=== PATIENT | female | born 1950 | race Caucasian/White ===

== ENCOUNTER 2017-03-06 01:23 | Inpatient (IN) | payer OTHER ==
[~2017-03-06] VITALS: Ht 142.2 cm; Wt 57.2 kg
--- NOTE | 2017-03-06 01:40 | NUR ---
Received report from MaicoRN
--- NOTE | 2017-03-06 01:53 | NUR ---
Pt. admitted to [facility] , under care of Dr. Bird/Dr Liam Rucker. Belongs List completed
--- NOTE | 2017-03-06 01:58 | NUR ---
Received patient in lying in gurney. Patient is alert and oriented x3, pleasant and is interacting with staff appropriately. Patient was admitted on a 5150 72hr hold exp. on 03/08/17 @2300. Patient is ambulatory with a steady gate, and is compliant with plan of care. Patient is continent and able to verbalize needs. Skin is Warm, dry, pink & intact. V/S WNL. No pain reported when asked. Respirations are unlabored. No distress noted. Will continue to monitor.
[2017-03-06] MEDS ORDERED: LORAZEPAM 0.5 MG TABLET PO PRN (02:00)
[2017-03-06] MEDS ORDERED: MAGNESIUM HYDROXIDE 30 ML LIQUID UDC PO PRN (02:00)
[2017-03-06] MEDS ORDERED: MAG HYDROX/AL HYDROX/SIMETH 30 ML LIQUID UDC PO PRN (02:00)
[2017-03-06] MEDS ORDERED: ACETAMINOPHEN 325 MG TABLET PO PRN (02:00)
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
[2017-03-06 07:30] VITALS: BP 99/73
--- NOTE | 2017-03-06 11:00 | NUR ---
PATIENT IS AWAKE ALERT TO SELF UP AND AMBULATORY IN THE UNIT REMAIN PARANOID AND DELUSIONAL AT THIS TIME WILL CONTINUE TO PROVIDE SAFE AND THERAPEUTIC ENVIRONMENT AT ALL TIMES.
--- NOTE | 2017-03-06 15:45 | NUR ---
UR Note: VICKY faxed current clinicals to [facility]ha ROSAS [phone]. Awaiting authorization. TRACKING# [id number]
[2017-03-06 16:00] VITALS: BP 113/71
--- NOTE | 2017-03-06 17:16 | NUR ---
NEW MEDICATION LIST OBTAINED FROM THE PATIENTS PRIMARY MD BY THE CHARGE NURSE
--- NOTE | 2017-03-06 18:47 | NUR ---
PATIENT SEEN AND EXAMINED BY DR KING WITH NEW ORDERS AND NOTED.
[2017-03-06 20:31] VITALS: BP 108/76
[2017-03-06] MEDS ORDERED: SITA100T PO (20:32)
[2017-03-06] MEDS ORDERED: HYDR-548 PO (20:32)
[2017-03-06] MEDS ORDERED: METF500T4 PO (20:32)
[2017-03-06] MEDS ORDERED: NAPR500T3 PO (20:32)
[2017-03-06] MEDS ORDERED: HYDROCODONE/APAP 10-325 MG TABLET PO PRN (21:30)
[2017-03-07] MEDS: TEMAZEPAM 7.5 MG CAPSULE PO PRN (00:06)
[2017-03-07 07:30] VITALS: BP 118/83
[2017-03-07] MEDS ORDERED: NAPROXEN 500 MG TABLET PO SCH (08:00)
[2017-03-07] MEDS: risperiDONE 0.25 MG TABLET PO SCH (08:41)
[2017-03-07] MEDS: METFORMIN HCL 500 MG TABLET PO SCH ×2 (08:41→17:29)
[2017-03-07] MEDS: SERTRALINE HCL 50 MG TABLET PO SCH (08:41)
--- NOTE | 2017-03-07 08:48 | NUR ---
Initial discharge instructions: Pt resides at home alone [[address] [place] [address] [address],[place],[address];[phone]].Per pt,she would like to return home upon discharge.VICKY called and left a voicemail for pt's brother,Le Leger ([phone] to discuss discharge plans.VICKY will speak with pt,family,and MD regarding appropriate discharge plans.VICKY will form a safe and proper discharge.
[2017-03-07] MEDS ORDERED: LINAGLIPTIN 5 MG TABLET PO SCH (09:00)
[2017-03-07] MEDS ORDERED: SITAGLIPTIN PHOSPHATE 50 MG TABLET PO SCH (09:00)
[2017-03-07 16:00] VITALS: BP 110/67
--- NOTE | 2017-03-07 16:22 | NUR ---
UR Note: VICKY faxed current clinicals to Keysha ROSAS with [employer] [ ext.244/Fx: [phone]. Awaiting authorization.TRACKING# [id number]
[2017-03-07 20:29] VITALS: BP 118/70
[2017-03-07] MEDS ORDERED: DIPHENOXYLATE HCL/ATROP SULF TABLET PO PRN (22:00)
--- NOTE | 2017-03-07 22:09 | NUR ---
Lonox given per MD order for diarrhea. Will continue to monitor
[2017-03-07] MEDS ORDERED: DIPHENOXYLATE HCL/ATROP SULF TABLET ONE (22:15)
--- NOTE | 2017-03-08 01:03 | NUR ---
PRN Mylanta given for upset stomach & diarrhea. will continue to monitor closely
[2017-03-08 07:30] VITALS: BP 145/86
[2017-03-08] MEDS ORDERED: NAPROXEN 500 MG TABLET PO PRN (08:00)
[2017-03-08] MEDS: risperiDONE 0.25 MG TABLET PO SCH ×2 (09:00→20:44)
[2017-03-08] MEDS: SERTRALINE HCL 50 MG TABLET PO SCH (09:00)
[2017-03-08] MEDS ORDERED: ONDANSETRON ODT 4 MG TAB.RAPDIS SL PRN (09:15)
--- NOTE | 2017-03-08 14:14 | NUR ---
UR Note: VICKY faxed current clinicals to Keysha ROSAS with [employer] [ ext.244/Fx: [phone]. VICKY called [facility]ha ROSAS requessting authorization #.TRACKING# [id number].
[2017-03-08 15:05] VITALS: BP 119/75
[2017-03-08 19:08] LABS: *BILIRUBIN,URIN NEGATIVE (NEGATIVE); *BLOOD, URINE 1+ (NEGATIVE); *CLARITY,URINE CLEAR (CLEAR); *COLOR,URINE YELLOW (YELLOW); *KETONES,URINE NEGATIVE (NEGATIVE); *PROTEIN,URINE TRACE (NEGATIVE); *UROBILINOGEN,URINE 0.2 E.U./dl (NORMAL); LEUKOCYTE ESTERASE ,URINE 3+ (NEGATIVE); NITRITE, URINE POSITIVE (NEGATIVE); PH,URINE 8.5 (5.0-8.0); UGLUCOSE NEGATIVE (NEGATIVE)
[2017-03-08 20:00] VITALS: BP 130/92
[2017-03-08 20:26] LABS: BACTERIA,URINE MA /HPF (NONE SEEN); RBC,URINE 0-3 /HPF (0-3); SQUAMOUS EPITHELIAL CELL,UR FEW /HPF (NONE SEEN); TRIPLE PHOSPHATE CRYSTAL,UR FEW /HPF (NONE SEEN); URINE AMORPHOUS PHOSPHATES MANY /HPF
[2017-03-08] MEDS: CEPHALEXIN MONOHYDRATE 500 MG CAPSULE PO SCH (21:06)
[2017-03-09] MEDS: CEPHALEXIN MONOHYDRATE 500 MG CAPSULE PO SCH ×3 (06:03→20:53)
--- NOTE | 2017-03-09 06:25 | NUR ---
GPS: REMAIN CALM AND COOPERATIVE. SLEPT 6 HRS THROUGH THE NIGHT.NO AGITATION NOTED.NO C/O PAIN OR DISCOMFORT NOTED.SLEEPING IN BED COMFORTABLY.
[2017-03-09 07:30] VITALS: BP 135/68
[2017-03-09] MEDS: risperiDONE 0.25 MG TABLET PO SCH ×2 (08:02→20:47)
[2017-03-09] MEDS: SERTRALINE HCL 50 MG TABLET PO SCH (08:02)
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
[2017-03-09 16:00] VITALS: BP 118/77
--- NOTE | 2017-03-09 18:08 | NUR ---
GPS.NEFTALI Rucker DNP. made rounds aware of patient vomiting and diarrhea yesterday. orders received and carried out CBC, CMP, MAG, PHOS.
--- NOTE | 2017-03-09 18:58 | NUR ---
TYLENOL 650MG PO PRN GIVEN AT 1633 FOR ORAL TEMPERATURE 99.1F. REASSESSED: ORAL TEMP. 98.6F. WE WILL CONTINUE TO MONITOR.
[2017-03-09 20:00] VITALS: BP 112/60
[2017-03-10] MEDS: CEPHALEXIN MONOHYDRATE 500 MG CAPSULE PO SCH ×3 (06:20→21:05)
[2017-03-10 07:25] LABS: BILIRUBIN,TOTAL 0.7 mg/dL (0.2-1.0); MAGNESIUM 2.2 mg/dL (1.8-2.4); PHOSPHOROUS 4.3 mg/dL (2.5-4.9); POTASSIUM 4.2 mmol/L (3.5-5.1); TOTAL PROTEIN, SERUM 7.6 g/dL (6.4-8.2)
[2017-03-10 07:34] LABS: BASOPHILS # (AUTO) 0.1 K/uL (0.0-8.0); BASOPHILS % (AUTO) 0.7 % (0.0-2.0); EOSINOPHILS # (AUTO) 0.1 K/uL (0.0-0.7); EOSINOPHILS % (AUTO) 1.1 % (0.0-7.0); HEMATOCRIT 44.7 % (37-47); HEMOGLOBIN 15.2 G/DL (12.0-16.0); LYMPHOCYTES # (AUTO) 2.4 K/UL (0.8-4.8); LYMPHOCYTES % (AUTO) 29.3 % (20.5-51.5); MEAN CORPUSCULAR HGB CONC 34 g/dL (32.0-37.0); MONOCYTES # (AUTO) 0.4 K/UL (0.1-1.30); MONOCYTES % (AUTO) 5.4 % (0.0-11.0); NEUTROPHILS # (AUTO) 5.2 K/UL (1.8-8.9); NEUTROPHILS % (AUTO) 63.5 % (38.5-71.5); PLATELET COUNT (AUTO) 272 K/UL (150-450); RED BLOOD CELL COUNT(AUTO) 4.91 MIL/UL (4.2-5.4); WHITE BLOOD COUNT (AUTO) 8.2 K/UL (4.0-11.2)
[2017-03-10] MEDS: risperiDONE 0.25 MG TABLET PO SCH (08:23)
[2017-03-10] MEDS: SERTRALINE HCL 50 MG TABLET PO SCH (08:23)
[2017-03-10 08:30] VITALS: BP 104/54
[2017-03-10 16:18] VITALS: BP 114/49
[2017-03-10 20:05] VITALS: BP 133/69
[2017-03-10] MEDS: risperiDONE 0.5 MG TABLET PO SCH (20:10)
[2017-03-10] MEDS ORDERED: risperiDONE 0.5 MG TABLET ONE (20:12)
--- NOTE | 2017-03-10 21:14 | NUR ---
pt is very paranoid, suspicious and guarded, responding to internali stimuli, when talking to staff, pt is whispering, was seen by the foot doctor, took meds as ordered, will continue to monitor closely.
[2017-03-11] MEDS: CEPHALEXIN MONOHYDRATE 500 MG CAPSULE PO SCH ×3 (06:45→21:22)
[2017-03-11 07:54] VITALS: BP 110/77
[2017-03-11] MEDS: SERTRALINE HCL 50 MG TABLET PO SCH (08:33)
[2017-03-11] MEDS: risperiDONE 0.5 MG TABLET PO SCH ×2 (08:33→20:03)
--- NOTE | 2017-03-11 14:54 | NUR ---
UR Note: VICKY faxed current clinicals to Keysha ROSAS with [employer] [ ext.244/Fx: [phone]]. Authorization #[id number]
[2017-03-11 15:02] VITALS: BP 97/57
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
--- NOTE | 2017-03-11 20:09 | NUR ---
Patient received sitting on bed, no acute distress noted. Pt still somewhat paranoid, suspicous and guared in behavior. No aggressive or combative behavior. Compliant with po medications. Will continue to monitor for safety.
[2017-03-11 20:11] VITALS: BP 106/74
[2017-03-11] MEDS: TEMAZEPAM 7.5 MG CAPSULE PO PRN (22:01)
[2017-03-12] MEDS: CEPHALEXIN MONOHYDRATE 500 MG CAPSULE PO SCH ×3 (06:18→23:22)
[2017-03-12 07:30] VITALS: BP 127/67
--- NOTE | 2017-03-12 09:20 | NUR ---
0700-Report received from outgoing nurse. The patient was asleep. 0830-The patient was alert, awake, oriented x 2, showed no signs of distress or pain, and and took her AM medications without incident. She showed no signs of hallucinations or delusions. She was alert, awake, verbally responsive, and denied pain/discomfort. The vital signs were within normal limits.
[2017-03-12] MEDS: risperiDONE 0.5 MG TABLET PO SCH ×2 (11:04→20:11)
[2017-03-12] MEDS: SERTRALINE HCL 50 MG TABLET PO SCH (11:06)
--- NOTE | 2017-03-12 14:23 | NUR ---
1000-The patient was sleeping in her bed. 1130-Lunch given to the patient she ate and had no complaints. 1400-Medication keflex given to the patient She took her medicine without incident.
[2017-03-12 15:13] VITALS: BP 123/73
[2017-03-12 20:23] VITALS: BP 110/67
--- NOTE | 2017-03-12 21:00 | NUR ---
PT IS MED COMPLIANT, REMAINS ISOLATIVE, BUT PERIODICALLY COMES TO THE NS TO MAKE NEEDS KNOWN, WILL CONTINUE TO MONITOR.
[2017-03-13] MEDS: CEPHALEXIN MONOHYDRATE 500 MG CAPSULE PO SCH (06:54)
[2017-03-13 07:30] VITALS: BP 100/69
[2017-03-13 07:48] LABS: BASOPHILS % (AUTO) 0.6 % (0.0-2.0); EOSINOPHILS # (AUTO) 0.1 K/uL (0.0-0.7); EOSINOPHILS % (AUTO) 1.3 % (0.0-7.0); HEMATOCRIT 41.8 % (37-47); HEMOGLOBIN 14.3 G/DL (12.0-16.0); LYMPHOCYTES # (AUTO) 2.5 K/UL (0.8-4.8); LYMPHOCYTES % (AUTO) 37.7 % (20.5-51.5); MEAN CORPUSCULAR HEMOGLOBIN 31.1 UUG (27.0-31.0); MEAN CORPUSCULAR HGB CONC 34 g/dL (32.0-37.0); MEAN CORPUSCULAR VOLUME 91.2 FL (81.0-99.0); MONOCYTES # (AUTO) 0.6 K/UL (0.1-1.30); MONOCYTES % (AUTO) 8.3 % (0.0-11.0); NEUTROPHILS # (AUTO) 3.5 K/UL (1.8-8.9); NEUTROPHILS % (AUTO) 52.1 % (38.5-71.5); PLATELET COUNT (AUTO) 218 K/UL (150-450); RED BLOOD CELL COUNT(AUTO) 4.59 MIL/UL (4.2-5.4); WHITE BLOOD COUNT (AUTO) 6.7 K/UL (4.0-11.2)
[2017-03-13 08:02] LABS: BILIRUBIN,TOTAL 0.6 mg/dL (0.2-1.0); CREATININE 1.1 mg/dL (0.6-1.3); MAGNESIUM 2.3 mg/dL (1.8-2.4); PHOSPHOROUS 4.6 mg/dL (2.5-4.9); POTASSIUM 4.5 mmol/L (3.5-5.1); TOTAL PROTEIN, SERUM 7.1 g/dL (6.4-8.2)
--- NOTE | 2017-03-13 08:30 | NUR ---
PATIENT IS AWAKE ALERT AND ORIENTED AWARE THAT SHE WILL BE DISCHARGE HOME TODAY SEEMS EMOTIONAL TODAY REASSURED AND ENCOURAGED TO CONTINUE TO TAKE HER MEDICATIONS ORDERED.
[2017-03-13] MEDS: SERTRALINE HCL 50 MG TABLET PO SCH (08:42)
[2017-03-13] MEDS: risperiDONE 0.5 MG TABLET PO SCH (08:42)
--- NOTE | 2017-03-13 09:09 | NUR ---
DC Note: Patient will be discharged home [[address] [facility], [place], [address]; [phone]] via private transportation at 11:00 am. Patient will be picked up by her brother, Le Leger [phone]. Patient is aware and agreeable with discharge plans. Patient will follow-up with (Manager Database) [[address] [facility] [address], [place] [address]] and was referred to Dianne Nava LCSW [[address] [place], [address]; [phone]] for outpatient therapy. Patient is scheduled to follow-up with Gracie Nazario) [[facility] [address] [place], [address]; [phone]] on March 18 at 10:00 am.
--- NOTE | 2017-03-13 10:20 | NUR ---
DC Note: Patient will be discharged home [[address] [place], [address]; [phone]] via private transportation at 11:00 am. Patient will be picked up by her brother, Le Leger [phone]. Patient's brother is aware and agreeable with discharge plans.Patient is aware and agreeable with discharge plans. Patient will follow-up with (Grocery Team Member) [[address] [facility] [[email or web address] [address], [place] [address]] and was referred to Dianne Nava LCSW [[address] [place], [address]; [phone]] for outpatient therapy. Patient is scheduled to follow-up with Gracie Rubio (Benny.P) [[address] [facility] [address], [place], [address]; [phone]] on March 18 at 10:00 am. A Home Health order was faxed to [facility] [phone] for RN evaluation and medication management. Patient's brother was provided with caregiving referrals that included [facility] [phone], [facility] [phone], and the [employer] which has a long list of senior care and care options. A outside medical sales representative from [facility] [Matthew Taveras ([phone]] and [facility] [Kyleigh [phone]] will be contacting patient's brother to provide termite renewal inspector placement options if needed. Patient was provided with a referral for [employer] [phone].
--- NOTE | 2017-03-13 11:00 | NUR ---
PATIENT DISCHARGED HOME PICKED UP BY HIS BROTHER BRENDEN PATIENT IS ALERT AND ORIENTED BUT IS EMOTIONAL STATED THAT HE LOST HER IS IS ALONE AT HOME.DISCHARGE INSTRUCTIONS GIVEN TO HIS BROTHER AND INSTRUCTED TO FILL THE PRESCRIPTIONS AND TO FOLLOW UP WITH HER PSYCH AND PRIMARY DOCTOR AND ALSO WILL BE FOLLOWED UP BY THE HOME ZULMA AND HE EXPRESSED UNDERSTANDING.PATIENTS PERSONAL BELONGINGS WAS RETRIEVED FOR THE SAFE AND GIVEN TO HER AND SHE SIGNED FOR THEM.
--- NOTE | 2017-03-13 11:48 | NUR ---
UR Note: VICKY faxed discharge clinicals to Keysha ROSAS with [employer] [ ext.[phone]/Fx: [phone]]. Authorization #[id number]
== END 2017-03-13 11:15 | disposition home or self-care (01) | DRG 885 ==
LOC: ER 01:29 → GPS 01:40
PROVIDERS: ADMIT Psychiatry & Neurology Psychiatry; ATTEND Psychiatry & Neurology Psychiatry
DX: F39 Unspecified mood [affective] disorder (principal); E11.65 Type 2 diabetes mellitus with hyperglycemia; F32.3 Major depressive disorder, single episode, severe with psychotic features; N39.0 Urinary tract infection, site not specified; F29 Unspecified psychosis not due to a substance or known physiological condition; I10 Essential (primary) hypertension; Z73.6 Limitation of activities due to disability; Z86.010 Personal history of colon polyps; B96.4 Proteus (mirabilis) (morganii) as the cause of diseases classified elsewhere; E78.5 Hyperlipidemia, unspecified
CPT/HCPCS: 36415; 83735; 84100; 85025; 87077; 87086; 97161; A4663; Q0162